=== PATIENT | female | born 1940 | race Caucasian/White ===

== ENCOUNTER → 2017-10-01 | Outpatient (CLI) | payer OTHER | END | disposition home or self-care (01) | LOC: SHCH 11:39 | PROVIDERS: ATTEND Internal Medicine Cardiovascular Disease | DX: I65.23 Occlusion and stenosis of bilateral carotid arteries (principal); R09.89 Other specified symptoms and signs involving the circulatory and respiratory systems | CPT/HCPCS: 93880 ==

== ENCOUNTER → 2022-02-26 | Outpatient (CLI) | payer OTHER ==
[2022-02-26 12:54] LABS: CREATININE 1.2 mg/dL (0.5-1.5); MAGNESIUM 1.6 mg/dL (1.80-2.40)
== END | disposition home or self-care (01) ==
LOC: LAB 10:00
PROVIDERS: ATTEND Internal Medicine Cardiovascular Disease
DX: I49.3 Ventricular premature depolarization (principal)
CPT/HCPCS: 36415; 80048; 83735

== ENCOUNTER → 2023-01-13 | Outpatient (CLI) | payer OTHER | END | disposition home or self-care (01) | LOC: RAH 12:38 | PROVIDERS: ATTEND Family Medicine | DX: R60.0 Localized edema (principal); M79.662 Pain in left lower leg | CPT/HCPCS: 93970 ==

== ENCOUNTER → 2023-02-17 | Outpatient (CLI) | payer OTHER | END | disposition home or self-care (01) | LOC: RAH 13:33 | PROVIDERS: ATTEND Family Medicine | DX: I73.9 Peripheral vascular disease, unspecified (principal); M81.0 Age-related osteoporosis without current pathological fracture | CPT/HCPCS: 93925 ==

== ENCOUNTER → 2023-07-27 | Outpatient (CLI) | payer OTHER ==
[2023-07-27 16:19] LABS: BASOPHILS # (AUTO) 0.07 K/uL (0.00-0.20); BASOPHILS % (AUTO) 0.9 % (0.0-5.0); EOSINOPHILS # (AUTO) 0.08 K/uL (0.00-0.70); IMMATURE GRANULOCYTE ABSOLUTE 0.01 K/uL (0-1); LYMPHOCYTES # (AUTO) 2.2 K/uL (1.0-4.8); LYMPHOCYTES % (AUTO) 29.1 % (21.0-51.0); MEAN CORPUSCULAR HEMOGLOBIN 31.2 pg (27.0-33.0); MEAN CORPUSCULAR HGB CONC 32.1 g/dL (32.0-36.0); MEAN CORPUSCULAR VOLUME 97.1 fL (79-99); MONOCYTES # (AUTO) 0.8 K/uL (0.1-1.0); MONOCYTES % (AUTO) 10.5 % (3.0-13.0); NEUTROPHILS # (AUTO) 4.5 K/uL (1.8-7.7); NEUTROPHILS % (AUTO) 58.4 % (40.0-77.0); PLATELET COUNT (AUTO) 191 K/uL (130-400); RED BLOOD CELL COUNT(AUTO) 4.43 MIL/uL (4.00-5.50); RED CELL DISTRIBUTION WIDTH 12.6 % (11.0-15.5); WHITE BLOOD COUNT (AUTO) 7.7 K/uL (4.8-10.8)
[2023-07-27 16:28] LABS: CREATININE 1.4 mg/dL (0.5-1.5); POTASSIUM 4.3 mmol/L (3.5-5.1)
== END | disposition home or self-care (01) ==
LOC: LAB 12:00
PROVIDERS: ATTEND Internal Medicine Cardiovascular Disease
DX: E87.6 Hypokalemia (principal); Z79.01 Long term (current) use of anticoagulants
CPT/HCPCS: 36415; 80048; 85025

== ENCOUNTER 2024-02-17 17:15 | Observation (INO) | payer OTHER ==
[~2024-02-17] VITALS: Ht 165.1 cm; Wt 69.6 kg
[2024-02-17 17:57] LABS: BASOPHILS # (AUTO) 0.05 K/uL (0.00-0.20); BASOPHILS % (AUTO) 0.8 % (0.0-5.0); EOSINOPHILS # (AUTO) 0.08 K/uL (0.00-0.70); EOSINOPHILS % (AUTO) 1.2 % (0.0-8.0); HEMATOCRIT 37.7 % (36-48); IMMATURE GRANULOCYTE ABSOLUTE 0.01 K/uL (0-1); LYMPHOCYTES # (AUTO) 2.1 K/uL (1.0-4.8); LYMPHOCYTES % (AUTO) 32.3 % (21.0-51.0); MEAN CORPUSCULAR HEMOGLOBIN 30.8 pg (27.0-33.0); MEAN CORPUSCULAR VOLUME 90.8 fL (79-99); MONOCYTES # (AUTO) 0.7 K/uL (0.1-1.0); MONOCYTES % (AUTO) 10.8 % (3.0-13.0); NEUTROPHILS # (AUTO) 3.6 K/uL (1.8-7.7); NEUTROPHILS % (AUTO) 54.7 % (40.0-77.0); PLATELET COUNT (AUTO) 196 K/uL (130-400); RED BLOOD CELL COUNT(AUTO) 4.15 MIL/uL (4.00-5.50); RED CELL DISTRIBUTION WIDTH 13.2 % (11.0-15.5); WHITE BLOOD COUNT (AUTO) 6.6 K/uL (4.8-10.8)
[2024-02-17 18:04] LABS: CREATININE 1.1 mg/dL (0.5-1.0); POTASSIUM 3.5 mmol/L (3.5-5.1)
[2024-02-17 18:17] LABS: B-TYPE NATRIURETIC PEPTIDE 249 pg/mL (0-100)
[2024-02-17] MEDS: CEFTRIAXONE 1G VIAL IVPB ONE (19:16)
[2024-02-17] MEDS: ONDANSETRON 4MG INJ IVP ONE (19:58)
[2024-02-17] MEDS: AZITHROMYCIN 500MG+NS 250ML 250 ML IVPB STA (20:08)
[2024-02-17] MEDS: FAMOTIDINE 20MG TAB PO SCH (21:54)
[2024-02-17 22:10] VITALS: BP 143/65; PULSE 61; RESP 19; O2SAT 98
[2024-02-17] MEDS ORDERED: ATOR40TA71 PO (23:29)
[2024-02-17] MEDS ORDERED: LEVO25TA54 PO (23:29)
[2024-02-17] MEDS ORDERED: METO50 PO (23:29)
[2024-02-17] MEDS ORDERED: FURO20TA4 PO (23:29)
[2024-02-17] MEDS ORDERED: LISI40TA9 PO (23:29)
[2024-02-17] MEDS ORDERED: HYDR12.54 PO (23:29)
[2024-02-17] MEDS ORDERED: POTA-364 PO (23:29)
[2024-02-17] MEDS ORDERED: MEMA5TAB16 PO (23:29)
[2024-02-17] MEDS ORDERED: APIX5TAB PO (23:29)
[2024-02-18 04:00] VITALS: BP_SYST 115; BP_SYST 144; BP_DIAS 64; BP_DIAS 84; PULSE 70; PULSE 83; RESP 18
[2024-02-18 06:06] LABS: BASOPHILS # (AUTO) 0.05 K/uL (0.00-0.20); BASOPHILS % (AUTO) 0.8 % (0.0-5.0); EOSINOPHILS # (AUTO) 0.09 K/uL (0.00-0.70); EOSINOPHILS % (AUTO) 1.5 % (0.0-8.0); HEMATOCRIT 38.8 % (36-48); IMMATURE GRANULOCYTE ABSOLUTE 0.01 K/uL (0-1); LYMPHOCYTES # (AUTO) 1.8 K/uL (1.0-4.8); LYMPHOCYTES % (AUTO) 29.9 % (21.0-51.0); MEAN CORPUSCULAR HEMOGLOBIN 31.1 pg (27.0-33.0); MEAN CORPUSCULAR VOLUME 94.2 fL (79-99); MONOCYTES # (AUTO) 0.6 K/uL (0.1-1.0); MONOCYTES % (AUTO) 10.5 % (3.0-13.0); NEUTROPHILS # (AUTO) 3.5 K/uL (1.8-7.7); NEUTROPHILS % (AUTO) 57.1 % (40.0-77.0); PLATELET COUNT (AUTO) 185 K/uL (130-400); RED BLOOD CELL COUNT(AUTO) 4.12 MIL/uL (4.00-5.50); RED CELL DISTRIBUTION WIDTH 13.2 % (11.0-15.5); WHITE BLOOD COUNT (AUTO) 6.1 K/uL (4.8-10.8)
[2024-02-18 06:21] LABS: ALBUMIN 3.1 g/dL (3.5-5.0); BILIRUBIN,TOTAL 0.4 mg/dL (0.2-1.0); CREATININE 0.9 mg/dL (0.5-1.0); MAGNESIUM 1.8 mg/dL (1.80-2.40); POTASSIUM 3.2 mmol/L (3.5-5.1); TOTAL PROTEIN, SERUM 7.5 g/dL (6.0-8.3)
[2024-02-18 06:40] LABS: B-TYPE NATRIURETIC PEPTIDE 289 pg/mL (0-100)
[2024-02-18 08:00] VITALS: BP 131/67; PULSE 62; RESP 16; O2SAT 100
[2024-02-18 12:00] VITALS: BP 110/55; PULSE 60; RESP 16
[2024-02-18 16:00] VITALS: BP 106/57; PULSE 74; RESP 16
[2024-02-18] MEDS: CEFTRIAXONE 1G VIAL IVPB SCH (19:36)
[2024-02-18 19:40] VITALS: O2SAT 99
[2024-02-18 20:00] VITALS: BP 108/63; PULSE 76; RESP 18
[2024-02-18] MEDS: AZITHROMYCIN 500MG+NS 250ML 250 ML IVPB SCH (20:21)
[2024-02-18] MEDS ORDERED: POTASSIUM CHLORIDE 10% ELIXIR 20 MEQ/15 ML UDCUP PO PRN (21:00)
[2024-02-18] MEDS ORDERED: POTASSIUM CHLORIDE 20MEQ/100ML 100 ML IV PRN ×2 (21:00)
[2024-02-18] MEDS: METOPROLOL TARTRATE 50 MG TAB PO SCH (21:06)
[2024-02-18] MEDS: ATORVASTATIN 40 MG TABLET PO SCH (21:06)
[2024-02-18] MEDS: APIXABAN 5 MG TABLET PO SCH (21:07)
[2024-02-18] MEDS: KCL 20 MEQ ERTAB PO PRN (21:07)
[2024-02-18] MEDS: MAGNESIUM 2GM PREMIX 50ML 50 ML IV PRN (23:55)
[2024-02-19] VITALS (9 sets, daily range): BP systolic 103–140; BP diastolic 54–71; PULSE 60–105; RESP 14–18; O2SAT 97–99
[2024-02-19 03:58] LABS: BASOPHILS # (AUTO) 0.05 K/uL (0.00-0.20); BASOPHILS % (AUTO) 0.9 % (0.0-5.0); EOSINOPHILS # (AUTO) 0.07 K/uL (0.00-0.70); EOSINOPHILS % (AUTO) 1.3 % (0.0-8.0); HEMATOCRIT 37.6 % (36-48); IMMATURE GRANULOCYTE ABSOLUTE 0.01 K/uL (0-1); LYMPHOCYTES # (AUTO) 1.7 K/uL (1.0-4.8); LYMPHOCYTES % (AUTO) 30.7 % (21.0-51.0); MEAN CORPUSCULAR HEMOGLOBIN 30.7 pg (27.0-33.0); MEAN CORPUSCULAR HGB CONC 32.7 g/dL (32.0-36.0); MEAN CORPUSCULAR VOLUME 93.8 fL (79-99); MONOCYTES # (AUTO) 0.5 K/uL (0.1-1.0); MONOCYTES % (AUTO) 8.5 % (3.0-13.0); NEUTROPHILS # (AUTO) 3.2 K/uL (1.8-7.7); NEUTROPHILS % (AUTO) 58.4 % (40.0-77.0); PLATELET COUNT (AUTO) 180 K/uL (130-400); RED BLOOD CELL COUNT(AUTO) 4.01 MIL/uL (4.00-5.50); RED CELL DISTRIBUTION WIDTH 13.2 % (11.0-15.5); WHITE BLOOD COUNT (AUTO) 5.5 K/uL (4.8-10.8)
[2024-02-19 04:26] LABS: BILIRUBIN,TOTAL 0.4 mg/dL (0.2-1.0); MAGNESIUM 2.4 mg/dL (1.80-2.40); TOTAL PROTEIN, SERUM 7.3 g/dL (6.0-8.3)
[2024-02-19] MEDS: LEVOTHYROXINE 25 MCG TABLET PO SCH (06:31)
[2024-02-19] MEDS: HYDROCHLOROTHIAZIDE PO SCH (09:00)
[2024-02-19] MEDS: MEMANTINE HCL 5 MG TABLET PO SCH (09:30)
[2024-02-19] MEDS: FUROSEMIDE 20 MG TABLET PO SCH (09:31)
[2024-02-19] MEDS: LISINOPRIL 40 MG TABLET PO SCH (09:31)
[2024-02-19] MEDS: FUROSEMIDE 20MG VIAL IV ONE (18:01)
[2024-02-20 03:00] VITALS: BP 118/63; PULSE 63; RESP 14
[2024-02-20 05:17] LABS: BASOPHILS # (AUTO) 0.06 K/uL (0.00-0.20); BASOPHILS % (AUTO) 1.2 % (0.0-5.0); EOSINOPHILS # (AUTO) 0.09 K/uL (0.00-0.70); EOSINOPHILS % (AUTO) 1.7 % (0.0-8.0); HEMATOCRIT 35.2 % (36-48); IMMATURE GRANULOCYTE ABSOLUTE 0.01 K/uL (0-1); LYMPHOCYTES # (AUTO) 1.7 K/uL (1.0-4.8); LYMPHOCYTES % (AUTO) 33.3 % (21.0-51.0); MEAN CORPUSCULAR HEMOGLOBIN 30.6 pg (27.0-33.0); MEAN CORPUSCULAR HGB CONC 32.4 g/dL (32.0-36.0); MEAN CORPUSCULAR VOLUME 94.6 fL (79-99); MONOCYTES # (AUTO) 0.6 K/uL (0.1-1.0); MONOCYTES % (AUTO) 10.6 % (3.0-13.0); NEUTROPHILS # (AUTO) 2.7 K/uL (1.8-7.7); PLATELET COUNT (AUTO) 159 K/uL (130-400); RED BLOOD CELL COUNT(AUTO) 3.72 MIL/uL (4.00-5.50); RED CELL DISTRIBUTION WIDTH 13.2 % (11.0-15.5); WHITE BLOOD COUNT (AUTO) 5.2 K/uL (4.8-10.8)
[2024-02-20 05:31] LABS: ALBUMIN 2.8 g/dL (3.5-5.0); BILIRUBIN,TOTAL 0.4 mg/dL (0.2-1.0); POTASSIUM 3.7 mmol/L (3.5-5.1); TOTAL PROTEIN, SERUM 6.7 g/dL (6.0-8.3)
[2024-02-20 06:01] LABS: B-TYPE NATRIURETIC PEPTIDE 251 pg/mL (0-100)
[2024-02-20 08:00] VITALS: BP 129/69; PULSE 76; RESP 18
[2024-02-20 09:16] VITALS: O2SAT 99
[2024-02-20] MEDS ORDERED: AMOX1TAB16 PO (09:50)
[2024-02-20] MEDS ORDERED: AZIT500T4 PO (09:50)
== END 2024-02-20 12:25 | disposition home or self-care (01) ==
LOC: EDH 17:15 → EDHIP 20:15 → 3CH 21:55
PROVIDERS: ADMIT Hospitalist; ATTEND Hospitalist
DX: J15.69 Pneumonia due to other Gram-negative bacteria (principal); I11.0 Hypertensive heart disease with heart failure; I50.9 Heart failure, unspecified; I48.91 Unspecified atrial fibrillation; R79.89 Other specified abnormal findings of blood chemistry; I25.810 Atherosclerosis of coronary artery bypass graft(s) without angina pectoris; E78.5 Hyperlipidemia, unspecified; M54.9 Dorsalgia, unspecified; Z79.01 Long term (current) use of anticoagulants; Z95.1 Presence of aortocoronary bypass graft; Z79.899 Other long term (current) drug therapy; Z98.890 Other specified postprocedural states
CPT/HCPCS: 96365; 96375 ×2; 96367 ×2; 99285; 84484; 80048; 83880 ×4; 85025 ×4; 36415 ×4; 71045; 70450; 93005; 96366 ×4; 83735 ×2; 80053 ×3; G0378 ×65; J0696 ×3; J2405; J0456 ×4; J3475; J1940

== ENCOUNTER → 2024-06-15 | Outpatient (CLI) | payer OTHER ==
[~2024-06-15] MED LIST: APIX5TAB PO; ATOR40TA71 PO; FURO20TA4 PO; HYDR-4030 PO; HYDR12.54 PO; LEVO25TA54 PO; LISI40TA9 PO; MEMA5TAB16 PO; METO50 PO; NITR0.4T50 SL; POTA-364 PO
== END | disposition home or self-care (01) ==
LOC: RAH 09:36
PROVIDERS: ATTEND Physician Assistant
DX: R92.30 Dense breasts, unspecified (principal); N63.20 Unspecified lump in the left breast, unspecified quadrant
CPT/HCPCS: 77066